=== PATIENT | female | born 1985 | race African-American/Black ===

== ENCOUNTER 2021-01-31 08:19 | Emergency (ER) | payer SELFPAY ==
[~2021-01-31] VITALS: Ht 162.6 cm; Wt 117.1 kg
[2021-01-31] MEDS ORDERED: LIDOCAINE HCL 1% LOCAL INJ 20 ML VIAL INJ ONE (09:00)
== END 2021-01-31 09:06 | disposition home or self-care (01) ==
LOC: FSED 08:45
DX: L02.11 Cutaneous abscess of neck (principal); F17.210 Nicotine dependence, cigarettes, uncomplicated
CPT/HCPCS: 10060; 99283